=== PATIENT | male | born 1965 | race Caucasian/White ===

== ENCOUNTER 2017-09-27 15:50 | Inpatient (IN) ==
--- NOTE | 2017-09-27 16:17 | Emergency Department Note ---
Disposition Clinical Impression: Hypertensive emergency CVA (cerebral vascular accident) Qualifiers: CVA mechanism: unspecified Qualified Code(s): I63.9 - Cerebral infarction, unspecified Disposition: Admitted As Inpatient Condition: Fair Time of Disposition: 17:43 Neuro HPI - General Chief Complaint: ED General Medical Stated Complaint: hypertensive, R arm / Leg weakness Time Seen by Provider: 09/27/17 16:08 Source: patient Mode of arrival: ambulatory Limitations: no limitations Nursing Notes Reviewed: Yes Vital Signs Reviewed: Yes - History of Present Illness HPI Narrative: 52-year-old who developed a right upper extremity right lower extremity weakness at 2 AM yesterday. States his symptoms are slowly improving. Onset of Symptoms Date: 09/26/17 Onset of Symptoms Time: 02:00 Symptom Onset Unknown: No Timing confirmed by: other Location: right arm, right leg History of same: No Severity: moderate Quality: weakness Symptoms Improving: Yes Improves with: time Worsens with: none Context: sudden onset On Anticoagulants: No Associated symptoms: Reports: denies other symptoms Treatments Prior to Arrival: none - Related Data Home Medications: Home Medications Medication Instructions Recorded Confirmed No Known Home Drugs 09/27/17 09/27/17 Allergies/Adverse Reactions: Allergies Allergy/AdvReac Type Severity Reaction Status Date / Time No Known Allergies Allergy Verified 03/04/16 05:20 Constitutional: Denies: fever, chills, weakness, weight change Eyes: Denies: eye pain, eye discharge, vision change ENT ED: Denies: ear pain, throat pain, dental pain, hearing loss, epistaxis, congestion, dysphagia Cardiovascular: Denies: chest pain, palpitations, dyspnea on exertion, edema, syncope Respiratory: Denies: cough, dyspnea, wheezes, hemoptysis, stridor Gastrointestinal: Denies: abdominal pain, nausea, vomiting, diarrhea, constipation, hematemesis, melena, hematochezia Genitourinary: Denies: urgency, dysuria, frequency, hematuria Musculoskeletal: Denies: back pain, neck pain, arthralgia, myalgia Integumentary: Denies: rash, abrasion, lesions Neurological: Reports: weakness. Denies: headache, numbness, paresthesias, confusion, abnormal gait, vertigo Psychiatric: Denies: anxiety, depression, suicidal thoughts, homicidal thoughts , auditory hallucinations, visual hallucinations Endocrine: Denies: fatigue Hematological/Lymphatic: Denies: easy bleeding, easy bruising Allergic/Immunologic: Denies: facial swelling, urticaria Past Medical History - Past Medical History Medical history: Reports: non-contributory Psychiatric history: Reports: no psych history - Social History Smoking Status: Unknown if ever smoked Smokeless Tobacco Status: No Alcohol use: Reports: none Drug use: Reports: marijuana Physical Exam - General Limitations: no limitations General appearance: alert, in no apparent distress - Head Head exam: atraumatic, normocephalic, normal inspection - Eye Eye exam: Present: normal appearance, PERRL, EOMI - ENT ENT exam: normal exam, normal oropharynx, mucous membranes moist - Neck Neck exam: Present: normal inspection, full ROM, trachea midline - Chest Chest inspection: Present: normal inspection, symmetric chest wall rise - Respiratory Respiratory exam: Present: normal lung sounds bilaterally - Cardiovascular Cardiovascular exam: Present: regular rate, normal rhythm, normal heart sounds - Abdominal Exam Abdominal exam: Present: soft, Non-Tender. Absent: tenderness, distention, guarding, rebound, rigidity - Extremities Exam Extremities exam: Present: normal inspection, full ROM. Absent: tenderness, pedal edema - Expanded Lower Extremity Exam Neurovascular/Tendon exam: Present: motor deficit (Currently a slight decrease in supervisor blasting strength on the right ). Absent: sensory deficit, tendon deficit Gait: observed and normal - Back Exam Back exam: Present: normal inspection, full ROM. Absent: tenderness - Neurological Exam Neurological exam: Present: alert, oriented X3 - Psychiatric Psychiatric exam: Present: normal affect, normal mood - Skin Skin exam: Present: warm, dry, intact, normal color Course - Reevaluation(s) Reevaluation #1: 52-year-old with onset of right arm weakness and right leg weakness that started about 38 hours prior to arrival. Workup here his NIH score is actually 0 now so it is improving. CT scan does show CVA in the subacute to chronic. Time: 18:17 Reevaluation #2: Blood pressure is 170/109 much improved. Patient is asymptomatic. Time: 19:07 - Consultations Consultation #1: Discussed with Dr. Falk who will see the patient in consult, we are going to start nicardipine and get his blood pressure down to 180/100 range. Time: 18:17 Consultation #2: Discussed with parul Pelaez. Time: 18:20 Vital Signs Temperature 98.9 F 09/27/17 16:00 Pulse Rate 66 09/27/17 16:00 Respiratory Rate 18 09/27/17 16:00 Blood Pressure 152/74 09/27/17 16:00 O2 Sat by Pulse Oximetry 99 09/27/17 16:00 Temperature 98.9 F 09/27/17 16:00 Pulse Rate 92 09/27/17 19:05 Respiratory Rate 18 09/27/17 19:05 Blood Pressure 170/109 09/27/17 19:05 O2 Sat by Pulse Oximetry 98 09/27/17 19:05 Oxygen Delivery Oxygen Delivery Room Air Neuro Symptoms/Deficit - Lab Data Lab results reviewed: Yes I reviewed the patient's lab results. Result diagrams: 09/27/17 16:24 09/27/17 16:24 Lab Results 09/27/17 09/27/17 Range/Units 16:24 16:24 WBC 6.4 (4.3-11.1) K/mcL RBC 4.56 (4.19-5.50) M/mcL Hgb 15.0 (12.9-16.9) g/dL Hct 42.6 (37.5-50.1) % MCV 93.4 (83.0-100.0) fL MCH 32.9 (28.0-33.3) pg MCHC 35.2 (31.6-35.5) g/dL RDW 12.5 (11.5-14.5) % Plt Count 283 (140-400) K/mcL MPV 10.7 (9.4-12.4) fL Immature Gran % 0.2 (0-4) % Seg Neutrophils % 75.2 % Lymphocytes % 15.3 % Monocytes % 8.4 % Eosinophils % 0.6 % Basophils % 0.3 % Neutrophils # 4.8 (1.6-8.9) K/mcL Lymphocytes # 1.0 (0.6-4.6) K/mcL Monocytes # 0.5 (0.0-1.3) K/mcL Eosinophils # 0.0 (0.0-0.6) K/mcL Basophils # 0.0 (0.0-0.2) K/mcL Sodium 141 (136-145) mEq/L Potassium 3.5 (3.5-5.1) mEq/L Chloride 106 (98-107) mEq/L Carbon Dioxide 27 (23-29) mEq/L BUN 20 (6-20) mg/dL Creatinine 1.33 H (0.70-1.30) mg/dL Est GFR ( Amer) > 60 (> 60) Est GFR (Non-Af Amer) 56 L (> 60) BUN/Creatinine Ratio 15 (6-26) Glucose 108 H (70-105) mg/dL Calculated Osmolality 295 (280-300) Calcium 9.3 (8.6-10.3) mg/dL Troponin I < 0.03 (< 0.04) ng/mL - Radiology Data Radiology results reviewed: Yes I reviewed the patient's radiology results. Chest X-Ray 09/27/17 16:13 IMPRESSION: No acute process. D/ / Rocael Jarquin MD / Rocael Jarquin MD Interpreting Provider: Rocael Jarquin MD Head CT 09/27/17 16:13 IMPRESSION: Focal hypoattenuation in the left basal ganglia suggesting subacute to chronic infarct. RECOMMENDATIONS: Consider further evaluation with MRI as clinically warranted. D/ / Lilly Chappell MD / Lilly Chappell MD Interpreting Provider: Lilly Chappell MD - EKG Data EKG attestation: Yes I reviewed and interpreted this EKG. EKG shows normal: sinus rhythm Rate: bradycardia Rhythm: NSR [place]ander/QRS: normal Interpretation: no acute changes NIH Stroke Scale - Level of Consciousness LOC: Alert - LOC Questions LOC Questions: Answers both correctly - LOC Commands LOC Commands: Performs both correctly - Best Gaze Best Gaze: Normal - Visual Visual: No visual loss - Facial Palsy Facial Palsy: Normal - Motor Arms Motor Arm-Left: No drift for 10 seconds Motor Arm-Right: No drift for 10 seconds - Motor Legs Motor Leg-Left: No drift for 5 seconds Motor Leg-Right: No drift for 5 seconds - Limb Ataxia Limb Ataxia: Normal, No Ataxia - Sensory Sensory: Normal - Best Language Best Language: No aphasia - Dysarthria Dysarthria: Normal - Extinction and Inattention Extinction and Inattention: Normal - NIHSS Total Score NIHSS Total Score: 0 TPA Checklist - Eligibilty for IV tPA 1. LKW equal to or less than 4.5 hours be before treatment: No - LKW: 3-4.5 hrs Add. Warnings/Precautions Patient/family understanding: The patient/family members have been counseled and understood the risk, benefit , and alternatives of treatment. Critical Care Time Critical Care Time: Yes Total Critical Care Time: 30 Attestation: The high probability of a clinically significant, sudden or life threatening deterioration of the [neurological] system(s) required my full and direct attention, intervention and personal management. The aggregate critical care time was [30] minutes. This time is in addition to time spent performing reported procedures but includes the following: [x] Data Review and interpretation [x] Patient assessment and monitoring of vital signs [x] Documentation [x] Medication orders and management
[2017-09-27 16:39] LABS: Basophils % 0.3 %; Eosinophils % 0.6 %; Hematocrit 42.6 % (37.5-50.1); Immature Granulocytes % 0.2 % (0-4); Lymphocytes % 15.3 %; Mean Corpuscular HGB Conc 35.2 g/dL (31.6-35.5); Mean Corpuscular Hemoglobin 32.9 pg (28.0-33.3); Mean Corpuscular Volume 93.4 fL (83.0-100.0); Mean Platelet Volume 10.7 fL (9.4-12.4); Monocytes # 0.5 K/mcL (0.0-1.3); Monocytes % 8.4 %; Neutrophils # 4.8 K/mcL (1.6-8.9); Platelet Count 283 K/mcL (140-400); Red Blood Count 4.56 M/mcL (4.19-5.50); Red Cell Distribution Width 12.5 % (11.5-14.5); Segmented Neutrophils % 75.2 %
[2017-09-27 16:58] LABS: Troponin I < 0.03 ng/mL (< 0.04)
[2017-09-27 17:02] LABS: BUN/Creatinine Ratio 15 (6-26); Blood Urea Nitrogen 20 mg/dL (6-20); Calcium 9.3 mg/dL (8.6-10.3); Carbon Dioxide 27 mEq/L (23-29); Chloride 106 mEq/L (98-107); Glucose 108 mg/dL (70-105); Osmolality,Calculated 295 (280-300); Potassium 3.5 mEq/L (3.5-5.1); Sodium 141 mEq/L (136-145); eGFR For African Americans > 60 (> 60); eGFR For Non-African Americans 56 (> 60)
[2017-09-27] MEDS ORDERED: niCARdipine 40 MG/200 ML MLS IVC SCH (17:45)
[2017-09-27] MEDS ORDERED: Aspirin 81 MG TAB.CHEW PO ONE (17:48)
--- NOTE | 2017-09-27 20:06 | Internal Med History&Physical ---
<Mauricio Sy - Last Filed: 09/27/17 21:34> Date of Encounter: 09/27/17 Time of Encounter: 20:06 Internal Medicine - H&P: HPI Chief complaint: Right Sided weakness Admitted From: Emergency Dept History of present illness: Mr. Simons is a 52 year old male with no past medical history does not take any medications presented to the emergency department for right-sided weakness that began at 2 AM the previous day. Symptoms began 09/27/17 at 2 AM. Said there is living and better throughout the day where now they are completely resolved. Patient has no family history of strokes. Only family history is hypertension no cardiac disease. He does not take any medications this time. Stays never had these symptoms before. He said the weakness is only on the right side where he felt like he was disoriented had a hard time walking on that right leg and also had difficult movements of the right hand including phone use. This has almost completely resolved for his admission. In the emergency department they did consult neurology who recommended nicardipine drip but not to drop his blood pressure too much. CT of the head showed subacute/chronic ischemia. Patient does not take aspirin or cholesterol. Otherwise patient no complaints including chest pain, shortness of breath, changes in mental status or generalized weakness otherwise there have been no recent fevers or illnesses Past Med Surg Social Fam HX - Past Medical History Medical history: non-contributory Psychiatric history: no psych history - Social History Smoking Status: Unknown if ever smoked Smokeless Tobacco Status: No Alcohol use: none Drug use: marijuana - Family History Mother Hx Family Cardiac Disorders: Yes (HTN) Hx Family Musculoskeletal Disorders: Yes Father Hx Family Cardiac Disorders: Yes (HTN) Hx Family Cancer: Yes (kidney cancer) Internal Medicine - H&P: Meds No Known Home Drugs 09/27/17 [History] 3 Allergy/AdvReac Type Severity Reaction Status Date / Time No Known Allergies Allergy Verified 03/04/16 05:20 All Systems PM: A 10-system review of systems was performed and is negative for pertinent findings except as documented above in the HPI. - Constitutional Constitutional: no chills, no fever(s), no night sweats - EENT Eyes: no change in vision, no discharge, no pain, no photophobia - Cardiovascular Cardiovascular ROS IM: no chest pain, no diaphoresis, no dyspnea, no lightheadedness, no palpitations, no syncope - Respiratory Respiratory: no cough, no dyspnea, no wheezing, no excessive phlegm production - Gastrointestinal Gastrointestinal: no abdominal pain, no diarrhea, no hematemesis, no hematochezia, no melena, no nausea, no vomiting - Musculoskeletal Musculoskeletal ROS IM: no numbness, no tingling - Integumentary Integumentary IM: no rash, no unusual bruising - Neurological Neurological ROS: focal weakness (Right side upper and lower extremity), numbness, no abnormal gait, no abnormal movements, no abnormal speech, no confusion, no convulsions, no dizziness, no frequent falls, no headache(s), no loss of vision, no paresthesias, no tingling, no tremor(s), no weakness - Hematologic/Lymphatic Hematologic/Lymphatic: no easy bruising - Constitutional Vitals: Temp Pulse Resp BP Pulse Ox 98.9 F 92 18 170/109 98 09/27/17 16:00 09/27/17 19:05 09/27/17 19:05 09/27/17 19:05 09/27/17 19:05 General appearance: Present: A&O X 3, no acute distress, answers questions appropriately - Head Head exam: Present: atraumatic, normocephalic - Eye Eye exam: Present: PERRL, conjuntiva pink, sclera anicteric Pupils: Present: PERRL - Neck Neck exam general surgery: Present: supple, trachea midline. Absent: lymphadenopathy - Respiratory Respiratory exam: Present: CTAB. Absent: accessory muscle use, rales, rhonchi, wheezes - Cardiovascular Cardiovascular exam: Present: RRR, +S1, +S2. Absent: diastolic murmur, gallop, rubs, systolic murmur - GI/Abdominal GI/Abdominal exam: Present: normal bowel sounds, soft, no peritoneal signs. Absent: distended, tenderness - Extremities Exam Extremities exam: Present: warm, radial pulses palpable and symmetrical. Absent : calf tenderness, cyanotic, pedal edema - Neurological Exam Neurological exam: Present: alert, CN II-XII intact, normal gait, oriented X3, reflexes normal, no focal deficits, strengths equal and symetr throughout. Absent: motor sensory deficit, pronater drift, facial droop, speech deficit - Skin Skin exam: Present: dry, intact Internal Med - H&P Results - Labs CBC & Chem 7: 09/27/17 16:24 09/27/17 16:24 - Assessment and plan (1) CVA (cerebral vascular accident) Current Visit: Yes Status: Acute Assessment and plan: Patient started having symptoms of right-sided weakness at approximately 2 AM on 09/27/17 patient stated that the symptoms slowly went away for now they feel like they are completely resolved. Patient said he felt like his dexterity was going away in the right hand and he was having trouble walking with the right leg. Otherwise he had no sensation loss. Patient does not take any medications she is otherwise healthy has no CVA family history only family history is hypertension. Patient was hypertensive at 220/140 in the emergency department. In the emergency Department patient was started on a nicardipine drip per neurology's request to help lower the blood pressure. We will try and keep his blood pressure between 220 and 190s systolic being sure not to drop it more than 15% within the first 24 hours to keep from having permissive hypotension and causing ischemia to the brain. CT head done in the emergency department showed possible chronic/subacute infarct but no acute infarct or head bleeds. Patient had an NIH score of 0 in the emergency department. We will start baby aspirin of 81 mg daily as well as 40 mg Lipitor daily. Order echo for the morning We will order MRI/MRA head for the morning. We will get morning labs to continue to monitor. Await recommendations from neurology consult Qualifiers: CVA mechanism: unspecified Qualified Code(s): I63.9 - Cerebral infarction, unspecified (2) Hypertensive emergency Current Visit: Yes Status: Acute Assessment and plan: Patient was hypertensive at 220/140 in the emergency department. Nicardipine drip was started due to keeping from Brandi anymore ischemia to the brain due to causing hypotension we will have a goal blood pressure of not dropping below 15 % within the first 24 hours. We will keep the blood pressure between 220 and 190 systolic. Continue nicardipine drip to keep blood pressure between 220 and 190 systolic. (3) DVT prophylaxis Current Visit: Yes Status: Acute Assessment and plan: Heparin subcutaneous - Time Spent With Patient Total time spent is greater than 50% in coordination of care (as documented) at patient's floor/unit and/or counseling patient: <Andrew Smith - Last Filed: 09/28/17 05:03> Date of Encounter: 09/28/17 Internal Medicine - H&P: HPI History of present illness: Mr. Simons is a 52 year old male All Systems PM: A 10-system review of systems was performed and is negative for pertinent findings except as documented above in the HPI. - Constitutional Vitals: Temp Pulse Resp BP Pulse Ox 98.3 F 54 18 160/91 97 09/28/17 03:59 09/28/17 04:30 09/28/17 03:59 09/28/17 03:59 09/28/17 03:59 Internal Med - H&P Results - Labs CBC & Chem 7: 09/27/17 16:24 09/27/17 16:24 - Attending Attestation I have seen and examined this patient independently. I have discussed with resident physician Dr. Sy regarding the management plan. Agree with the documentation. - Time Spent With Patient Total time spent is greater than 50% in coordination of care (as documented) at patient's floor/unit and/or counseling patient:
[2017-09-27] MEDS ORDERED: Naloxone 0.4 MG/ML INJ IVP PRN (20:18)
[2017-09-27] MEDS ORDERED: Acetaminophen 325 MG TABLET PO PRN (20:18)
[2017-09-27] MEDS: 0.9 % Sodium Chloride 1,000 ML IVC SCH (21:57)
[2017-09-28] MEDS: *HR* Heparin 5,000 UNIT/ML VIAL SQ SCH ×2 (05:42→17:55)
[2017-09-28 06:40] LABS: Prothrombin Time 10.7 Seconds (9.4-12.1)
[2017-09-28 06:48] LABS: Basophils # 0.1 K/mcL (0.0-0.2); Basophils % 1.1 %; Eosinophils # 0.1 K/mcL (0.0-0.6); Eosinophils % 1.7 %; Hematocrit 43.2 % (37.5-50.1); Hemoglobin 14.9 g/dL (12.9-16.9); Immature Granulocytes % 1.3 % (0-4); Lymphocytes % 17.6 %; Mean Corpuscular HGB Conc 34.5 g/dL (31.6-35.5); Mean Corpuscular Hemoglobin 32.5 pg (28.0-33.3); Mean Corpuscular Volume 94.1 fL (83.0-100.0); Mean Platelet Volume 10.5 fL (9.4-12.4); Monocytes # 0.5 K/mcL (0.0-1.3); Monocytes % 8.5 %; Neutrophils # 3.8 K/mcL (1.6-8.9); Nucleated Red Blood Cells 0.9 /100 WBC (0); Platelet Count 252 K/mcL (140-400); Red Blood Count 4.59 M/mcL (4.19-5.50); Red Cell Distribution Width 12.7 % (11.5-14.5); Segmented Neutrophils % 69.8 %
[2017-09-28 06:55] LABS: BUN/Creatinine Ratio 18 (6-26); Blood Urea Nitrogen 19 mg/dL (6-20); Calcium 8.8 mg/dL (8.6-10.3); Carbon Dioxide 25 mEq/L (23-29); Chloride 107 mEq/L (98-107); Chol/HDL Ratio 3.8 (0-4.9); Cholesterol 245 mg/dL (< 200); Glucose 114 mg/dL (70-105); HDL Cholesterol 64 mg/dL (40-59); LDL Cholesterol,Calculated 147 mg/dL (0-99); Osmolality,Calculated 297 (280-300); Potassium 4.1 mEq/L (3.5-5.1); Sodium 142 mEq/L (136-145); Triglycerides 171 mg/dL (< 150); eGFR For African Americans > 60 (> 60); eGFR For Non-African Americans > 60 (> 60)
[2017-09-28 06:56] LABS: Troponin I < 0.03 ng/mL (< 0.04)
[2017-09-28] MEDS: Aspirin 81 MG TAB.CHEW PO SCH (07:46)
--- NOTE | 2017-09-28 07:46 | Neurology - Consult Note ---
Date of Encounter: 09/28/17 Time of Encounter: 07:44 Assessment and Plan (1) Basal ganglia infarction Current Visit: Yes Status: Acute Patient has suffered an acute infarct of the left basal ganglia due to malignant hypertension. His deficits have almost completely resolved. MRI/MRA of the brain are pending today. I believe he will likely make a full recovery. Malignant hypertension likely resulted in a vasospasm causing the infarct. At this juncture I recommend slowly normalizing his blood pressure over the next day or 2. Certainly long-term monitoring and treatment of his hypertension and hyperlipidemia going to be paramount. Long-term therapy will consist of antihypertensives, statin therapy and aspirin 81 mg daily. Would recommend stroke protocol orders for nursing care. He should also have PT and OT evaluations to determine whether or not he will need further therapy after discharge. I will reevaluate him at your request. History of Present Illness HPI: The chart was reviewed, the patient was seen and examined. Mr. Horn is a very pleasant 52-year-old right-handed gentleman who is seen for neurologic evaluation secondary to symptoms of right upper and right lower extremity clumsiness. Patient states that he awakened from his sleep about 2 days or so ago with the symptoms. He denied headache, denied paresthesias, denies visual changes. He had not ever been diagnosed with any other medical conditions and was not on any other medication therapy. Upon arrival to the ED his symptoms were nearly resolved, however his blood pressure upon arrival was 220/140. Other testing completed since his admission finding that his triglycerides and cholesterol are also markedly elevated. He does not smoke cigarettes but does smoke marijuana. Currently he is awake alert and oriented and gives a lucid history. CT scan of the brain completed in the ED revealed what appears to be in acute infarct in the left basal ganglia. MRI/MRA of the brain are pending today. He did get aspirin in the ED. Past Med Surg Social Fam HX - Past Medical History Medical history: non-contributory Psychiatric history: no psych history - Social History Smoking Status: Unknown if ever smoked Smokeless Tobacco Status: No Alcohol use: none Drug use: marijuana - Family History Mother Hx Family Cardiac Disorders: Yes (HTN) Hx Family Musculoskeletal Disorders: Yes Father Hx Family Cardiac Disorders: Yes (HTN) Hx Family Cancer: Yes (kidney cancer) Medications and Allergies No Known Home Drugs 09/27/17 [History] 3 Allergy/AdvReac Type Severity Reaction Status Date / Time No Known Allergies Allergy Verified 03/04/16 05:20 All Systems: The remainder of the systems were reviewed and are negative Review of Systems: The balance of the systems review is negative. Physical Examination - Vital Signs Vital Signs: Initial Vital Signs Temp Pulse Resp BP Pulse Ox 98.9 F 66 18 152/74 99 09/27/17 16:00 09/27/17 16:00 09/27/17 16:00 09/27/17 16:00 09/27/17 16:00 - Neurologic Detailed motor examination: full strength in all major muscle groups Motor examination - right side: 4/5: triceps, 5/5: deltoids, biceps, wrist flexion, wrist extension, supervisor sunglasses, hip flexors, tibialis Anterior, quadriceps, toe extension (EHL), plantarflexion Motor examination - left side: 5/5: deltoids, biceps, triceps, wrist flexion, wrist extension, hip flexors, supervisor sunglasses, quadriceps, tibialis Anterior, toe extension (EHL), plantarflexion Reflex and gait examination: other (Deep tendon reflexes are 2 symmetrically of the biceps, triceps, brachioradialis, patella, and Achilles. No long tract signs are identified.) Mental Status Examination: awake, alert, oriented to person, oriented to place, oriented to time, follows commands appropriately, answers questions appropriately, no agnosia, no aphasia, no aproxia Cranial nerve examination: PERRL, EOMI, visual mendenhall intact, corneal reflexes brisk symmetrically, sensory to face intact, mastication intact, no facial asymmetry is present, no dysarthria, hearing is intact symmetrically, soft palate elevates bilaterally upon phonation, gag reflex intact, flexes SCM and trapezius muscles symmetrically with full power, tongue protrudes midline, no atrophy or facial fasiculations present Cerebellar examination: no dysmetria, performs finger to nose and heel to mo[place] symmetrically without ataxia, no gait ataxia, no truncal ataxia, no difficulty with rapid alternating movements Results - Laboratory Findings CBC and BMP: 09/28/17 06:03 09/28/17 06:03 Abnormal lab findings: Abnormal lab results Nucleated RBCs/100 WBC 0.9 /100 WBC (0) H 09/28/17 06:03 Glucose 114 mg/dL (70-105) H 09/28/17 06:03 Triglycerides 171 mg/dL (< 150) H 09/28/17 06:03 Cholesterol 245 mg/dL (< 200) H 09/28/17 06:03 LDL Cholesterol, Calc 147 mg/dL (0-99) H 09/28/17 06:03 VLDL Cholesterol, Calc 34 mg/dL (< 31) H 09/28/17 06:03 HDL Cholesterol 64 mg/dL (40-59) H 09/28/17 06:03 Consult Discharge Plan - Plan Referrals: NONE,PCP [Primary Care Provider] -
[2017-09-28] MEDS: 0.9 % Sodium Chloride 1,000 ML IVC SCH (07:53)
[2017-09-28] MEDS ORDERED: niCARdipine 40 MG/200 ML MLS IVC SCH ×2 (14:45→16:47)
--- NOTE | 2017-09-28 16:40 | Internal Med Progress Note ---
Date of Encounter: 09/28/17 Time of Encounter: 10:00 - Assessment and plan (1) CVA (cerebral vascular accident) Current Visit: Yes Status: Acute Assessment and plan: Presented with right-sided weakness, now improving. CT head showed subacute to chronic infarct in left basal ganglia. MRI brain shows an acute lacunar infarct in left thalamus/posterior limb of left internal capsule. MRA head and neck showed no focal stenosis or aneurysm. Follow-up echocardiogram and bilateral carotid Doppler. Neurology consult appreciated. Continue blood pressure control, aspirin and statin have been started. Frequent neuro checks. Physical and occupational therapy evaluation. Qualifiers: CVA mechanism: unspecified Qualified Code(s): I63.9 - Cerebral infarction, unspecified (2) Hypertensive emergency Current Visit: Yes Status: Acute Assessment and plan: Uncontrolled hypertension with acute stroke. Has been started on the Cardizem drip which was then held. Systolic blood pressure noted to be greater than 200. Will resume Cardene drip and start Lisinopril-HCTZ to keep BP <180/110. Monitor closely; - Time Spent With Patient Total time spent is greater than 50% in coordination of care (as documented) at patient's floor/unit and/or counseling patient: - Subjective Interval history: Reports some loss of dexterity in the right hand. No other focal weakness, tingling or numbness. Improved right leg weakness. No headache, blurred vision or confusion. - Constitutional Vitals: Temp Pulse Resp BP Pulse Ox 98.6 F 79 19 169/109 96 09/28/17 16:23 09/28/17 16:23 09/28/17 16:23 09/28/17 16:23 09/28/17 16:23 General appearance: Present: A&O X 3, no acute distress, answers questions appropriately - Respiratory Respiratory exam: Present: CTAB. Absent: accessory muscle use, rales, rhonchi, wheezes - Cardiovascular Cardiovascular exam: Present: RRR, +S1, +S2. Absent: diastolic murmur, gallop, rubs, systolic murmur - GI/Abdominal GI/Abdominal exam: Present: normal bowel sounds, soft, no peritoneal signs. Absent: distended, tenderness - Extremities Exam Extremities exam: Present: full ROM, warm, radial pulses palpable and symmetrical. Absent: calf tenderness, cyanotic, pedal edema - Neurological Exam Neurological exam: Present: CN II-XII intact, oriented X3, no focal deficits. Absent: pronater drift, facial droop, speech deficit Internal Medicine: Result - Labs CBC & Chem 7: 09/28/17 06:03 09/28/17 06:03 Labs: Short CBC 09/28/17 Range/Units 06:03 WBC 5.4 (4.3-11.1) K/mcL Hgb 14.9 (12.9-16.9) g/dL Hct 43.2 (37.5-50.1) % Plt Count 252 (140-400) K/mcL Neutrophils # 3.8 (1.6-8.9) K/mcL BMP 09/28/17 06:03 Sodium 142 Potassium 4.1 Chloride 107 Carbon Dioxide 25 BUN 19 Creatinine 1.07 Glucose 114 H Calcium 8.8 Cardiac Enzymes 09/28/17 Range/Units 06:03 Troponin I < 0.03 (< 0.04) ng/mL - ABG Interpretation ABG results: PT/INR, D-dimer PT 10.7 Seconds (9.4-12.1) 09/28/17 06:03 - Impressions Impressions Brain MRI 09/28/17 21:36 IMPRESSION: 1. An acute lacunar infarct is seen in the region of the left thalamus/posterior limb of the left internal capsule. No mass effect or midline shift. 2. Otherwise, no acute intracranial abnormality. 3. Minimal chronic microvascular ischemic change. These results were sent to the [facility] ([facility] on 09/28/2017 at 2:34 pm to be communicated to the referring/covering health care provider/office. D/ / Dwayne Beatty MD / Dwayne Beatty MD Interpreting Provider: Dwayne Beatty MD Head MRA 09/28/17 21:36 IMPRESSION: Unremarkable MRA of the head. D/ / Dwayne Beatty MD / Dwayne Beatty MD Interpreting Provider: Dwayne Beatty MD Consult Discharge Plan - Plan Referrals: Viviane Hough, MORGAN [Advanced Practice Nurse] - (This is at the [facility].)
[2017-09-29 05:05] LABS: Basophils % 0.5 %; Eosinophils # 0.1 K/mcL (0.0-0.6); Hematocrit 42.8 % (37.5-50.1); Hemoglobin 15.4 g/dL (12.9-16.9); Immature Granulocytes % 0.3 % (0-4); Mean Corpuscular Hemoglobin 33.6 pg (28.0-33.3); Mean Corpuscular Volume 93.2 fL (83.0-100.0); Mean Platelet Volume 10.4 fL (9.4-12.4); Monocytes # 0.5 K/mcL (0.0-1.3); Monocytes % 8.7 %; Neutrophils # 4.3 K/mcL (1.6-8.9); Platelet Count 238 K/mcL (140-400); Red Blood Count 4.59 M/mcL (4.19-5.50); Red Cell Distribution Width 12.5 % (11.5-14.5); Segmented Neutrophils % 71.5 %
[2017-09-29 05:23] LABS: BUN/Creatinine Ratio 19 (6-26); Blood Urea Nitrogen 22 mg/dL (6-20); Carbon Dioxide 25 mEq/L (23-29); Chloride 105 mEq/L (98-107); Glucose 120 mg/dL (70-105); Osmolality,Calculated 293 (280-300); Potassium 3.7 mEq/L (3.5-5.1); Sodium 139 mEq/L (136-145); eGFR For African Americans > 60 (> 60); eGFR For Non-African Americans > 60 (> 60)
[2017-09-29] MEDS: *HR* Heparin 5,000 UNIT/ML VIAL SQ SCH ×2 (06:29→16:56)
[2017-09-29] MEDS: Aspirin 81 MG TAB.CHEW PO SCH (08:10)
--- NOTE | 2017-09-29 17:13 | Vascular/Endovasc Consult Note ---
Date of Encounter: 09/29/17 Time of Encounter: 16:40 Assessment and Plan (1) Carotid stenosis, right Status: Chronic The pathophysiology and natural history of carotid stenosis was discussed the patient on questions were answered. The patient has recently sustained a left hemispheric cerebrovascular accident. He has no residual deficits. He has no significant left internal carotid artery stenosis. He is a 60-79% right internal carotid stenosis by duplex. He was instructed to seek immediate medical attention for any signs or symptoms of cerebrovascular accident, transient ischemic attack or amaurosis fugax. The patient is was advised to take aspirin daily. His symptoms he was counseled regarding atherosclerotic risk factor reduction. He reports that he recently quit smoking has been counseled regarding smoking cessation. He will follow-up in vascular clinic in 1 year with a repeat carotid duplex. (2) Hypertensive emergency Status: Acute The patient was counseled regarding atherosclerotic risk factor reduction. (3) CVA (cerebral vascular accident) Status: Acute Qualifiers: CVA mechanism: other Qualified Code(s): I63.8 - Other cerebral infarction - History of Present Illness Consult date: 09/29/17 Requesting physician: Nicole Shell Consult reason: Carotid stenosis Chief complaint: CVA History of present illness: Mr. Simons is a 52 year old male admitted to [facility] with a right-sided weakness. He underwent a MRI of the brain was found have a left hemispheric cerebrovascular accident the patient symptoms have nearly resolved. His symptoms and felt to be due to hypertensive crisis. During his evaluation he underwent a carotid duplex. He was found have significant stenosis. Vascular surgery was counseled for further evaluation. He denies any recurrent symptoms of cerebral vascular accident, transient ischemic attack or amaurosis fugax. He denies chest pain or shortness of breath. Past Med Surg Social Fam HX - Past Medical History Medical history: non-contributory Psychiatric history: no psych history - Social History Smoking Status: Unknown if ever smoked Smokeless Tobacco Status: No Alcohol use: none Drug use: marijuana - Family History Mother Hx Family Cardiac Disorders: Yes (HTN) Hx Family Musculoskeletal Disorders: Yes Father Hx Family Cardiac Disorders: Yes (HTN) Hx Family Cancer: Yes (kidney cancer) Medications and Allergies Aspirin 81 mg PO DAILY #30 tab.chew 09/30/17 [Rx] Atorvastatin [Lipitor] 40 mg PO HS #30 tablet 09/30/17 [Rx] Lisinopril-HCTZ 20-12.5 [Prinzide 20-12.5] 1 each PO DAILY #30 tablet 09/30/17 [ Rx] Metoprolol [Lopressor] 12.5 mg PO BID #30 tablet 09/30/17 [Rx] 3 Allergy/AdvReac Type Severity Reaction Status Date / Time No Known Allergies Allergy Verified 03/04/16 05:20 All Systems Review: The remainder of the systems were reviewed and are negative - Constitutional Constitutional: no headache(s), no lethargy - EENT Eyes: no blurred vision, no loss of vision - Cardiovascular Cardiovascular: no chest pain at rest, no dyspnea at rest Exam Vital Signs, Last 4 Hours Temp Pulse Resp BP Pulse Ox 09/29/17 17:10 181/114 09/29/17 15:45 98.5 F 80 18 184/104 98 HEENT: Present: Trachea midline, Pupils equal Neck: Present: Right Carotid bruit. Absent: Left Carotid bruit Cardiac: Present: Reg Rate and Rhythm, Normal S1 and S2 Lungs: Present: Normal Breath Sounds, No Wheeze, Rales, Rhonchi Neuro: Present: Alert and responsive, Cranial nerves grossly intact, Motor nerves grossly intact, Sensory nerves grossly intact Abdomen: Present: Non-tender. Absent: Masses Vascular: Present: Normal capillary refill, Pulse, normal. Absent: Cyanosis Skin: Present: No rashes noted on visualized skin Consult Discharge Plan - Plan Instructions: Metoprolol (By mouth), Aspirin (By mouth), Atorvastatin (By mouth ), Lisinopril/Hydrochlorothiazide (By mouth), Chronic Hypertension (DC) Additional Instructions: F/up with PCP in 1-2 weeks Referrals: Rowena Chandler MD [Partnered Physician] - 11/24/17 8:00 am (this is a new patient visit) Prescriptions: Aspirin 81 mg PO DAILY #30 tab.chew Atorvastatin [Lipitor] 40 mg PO HS #30 tablet Lisinopril-HCTZ 20-12.5 [Prinzide 20-12.5] 1 each PO DAILY #30 tablet Metoprolol [Lopressor] 12.5 mg PO BID #30 tablet
--- NOTE | 2017-09-29 19:22 | Internal Med Progress Note ---
Date of Encounter: 09/29/17 Time of Encounter: 10:30 - Assessment and plan (1) CVA (cerebral vascular accident) Current Visit: Yes Status: Acute Assessment and plan: Presented with right-sided weakness, now improving. CT head showed subacute to chronic infarct in left basal ganglia. MRI brain shows an acute lacunar infarct in left thalamus/posterior limb of left internal capsule. MRA head and neck showed no focal stenosis or aneurysm. Carotid Doppler shows right ICA 60-79 % stenosis; consulted vascular surgery; Follow-up echocardiogram; Neurology consult appreciated. Continue blood pressure control, aspirin and statin have been started. Frequent neuro checks. Physical and occupational therapy evaluation noted, no interventions necessary. Qualifiers: CVA mechanism: unspecified Qualified Code(s): I63.9 - Cerebral infarction, unspecified (2) Hypertensive emergency Current Visit: Yes Status: Acute Assessment and plan: Uncontrolled hypertension with acute stroke. Has been started on Cardene drip initially. BP noted to be improving; continue Lisinopril-HCTZ to keep BP <180/ 110. will use PRN IV Hydralazine; Monitor closely; - Time Spent With Patient Total time spent is greater than 50% in coordination of care (as documented) at patient's floor/unit and/or counseling patient: - Subjective Interval history: Reports improvement in right hand weakness; no headache, focal weakness, dyspnea , headache, chest pain; BP is improving; - Constitutional Vitals: Temp Pulse Resp BP Pulse Ox 98.5 F 80 18 181/114 98 09/29/17 15:45 09/29/17 15:45 09/29/17 15:45 09/29/17 17:10 09/29/17 15:45 General appearance: Present: A&O X 3, no acute distress, answers questions appropriately - Respiratory Respiratory exam: Present: CTAB. Absent: accessory muscle use, rales, rhonchi, wheezes - Cardiovascular Cardiovascular exam: Present: RRR, +S1, +S2. Absent: diastolic murmur, gallop, rubs, systolic murmur Internal Medicine: Result - Labs CBC & Chem 7: 09/29/17 04:34 09/29/17 04:34 Labs: Short CBC 09/29/17 Range/Units 04:34 WBC 6.1 (4.3-11.1) K/mcL Hgb 15.4 (12.9-16.9) g/dL Hct 42.8 (37.5-50.1) % Plt Count 238 (140-400) K/mcL Neutrophils # 4.3 (1.6-8.9) K/mcL BMP 09/29/17 04:34 Sodium 139 Potassium 3.7 Chloride 105 Carbon Dioxide 25 BUN 22 H Creatinine 1.15 Glucose 120 H Calcium 9.0 - ABG Interpretation ABG results: PT/INR, D-dimer PT 10.7 Seconds (9.4-12.1) 09/28/17 06:03 - Impressions Impressions Echocardiogram 09/28/17 05:01 Impressions: LVEF 60-65%. Mild left ventricular diastolic dysfunction. Normal right ventricular structure and function. No significant valvular dysfunction. No pulmonary hypertension. No evidence of PFO with agitated saline contrast. Left Ventricular Wall Motion: Rest Echo Findings All wall segments showed normal motion. Findings: Study Quality * Technically adequate exam. ECG Findings * Normal sinus rhythm. Left Ventricle * LVEF 60-65%. * Normal LV chamber size, wall thickness and function. * Mild left ventricular diastolic dysfunction. Right Ventricle * Normal right ventricular structure and function. Left Atrium * Normal left atrial size. Right Atrium * Normal right atrial size. Mitral Valve * Normal mitral valve structure. * No mitral stenosis. * No mitral regurgitation. Aortic Valve * No aortic regurgitation. * Aortic valve not well visualized. * No aortic stenosis. Tricuspid Valve * No tricuspid regurgitation. * Normal tricuspid valve structure. * Estimated RA pressure is 3 mmHg. * Estimated RVSP is 17 mmHg. * No pulmonary hypertension. Pulmonic Valve * Pulmonic valve is not well visualized. * No pulmonic stenosis. * No pulmonic regurgitation. Pulmonary Artery * Pulmonary artery not well visualized. Aorta * Not well visualized. Pericardium * There is no pericardial effusion present. IVC * The IVC is not dilated. Interatrial Septum * No evidence of PFO with agitated saline contrast. Consult Discharge Plan - Plan Referrals: Viviane Hough, SONAR WATCHSTANDER [Advanced Practice Nurse] - (This is at the [facility].)
[2017-09-30 06:44] VITALS: BP 181/104
[2017-09-30] MEDS: *HR* Heparin 5,000 UNIT/ML VIAL SQ SCH (06:44)
[2017-09-30 06:54] LABS: Basophils % 0.4 %; Eosinophils # 0.1 K/mcL (0.0-0.6); Eosinophils % 0.8 %; Hematocrit 46.3 % (37.5-50.1); Hemoglobin 16.2 g/dL (12.9-16.9); Immature Granulocytes % 0.6 % (0-4); Mean Corpuscular Volume 94.3 fL (83.0-100.0); Mean Platelet Volume 10.6 fL (9.4-12.4); Monocytes # 0.7 K/mcL (0.0-1.3); Monocytes % 9.7 %; Neutrophils # 5.3 K/mcL (1.6-8.9); Platelet Count 277 K/mcL (140-400); Red Blood Count 4.91 M/mcL (4.19-5.50); Red Cell Distribution Width 12.6 % (11.5-14.5); Segmented Neutrophils % 74.5 %
[2017-09-30 07:14] LABS: BUN/Creatinine Ratio 21 (6-26); Blood Urea Nitrogen 27 mg/dL (6-20); Calcium 9.5 mg/dL (8.6-10.3); Carbon Dioxide 28 mEq/L (23-29); Chloride 103 mEq/L (98-107); Glucose 120 mg/dL (70-105); Osmolality,Calculated 292 (280-300); Potassium 3.8 mEq/L (3.5-5.1); Sodium 138 mEq/L (136-145); eGFR For African Americans > 60 (> 60); eGFR For Non-African Americans 59 (> 60)
[2017-09-30] MEDS: Aspirin 81 MG TAB.CHEW PO SCH (08:15)
[2017-09-30] MEDS ORDERED: Lisinopril-HCTZ 20-12.5mg TABLET PO SCH (09:30)
--- NOTE | 2017-09-30 10:32 | Discharge Summary ---
- NOTES TO OUTPATIENT PROVIDER Notes to Outpatient Provider: Acute ischemic stroke, uncontrolled HTN Date of Encounter: 09/30/17 Time of Encounter: 10:30 - Discharge Diagnosis (1) CVA (cerebral vascular accident) Priority: Primary Status: Acute Qualifiers: CVA mechanism: other Qualified Code(s): I63.8 - Other cerebral infarction (2) Hypertensive emergency Priority: Primary Status: Acute Hospital course: Mr. Simons is a 52 year old male with no known medical history, was admitted with right hand weakness. CT head showed subacute to chronic infarct in left BG. He was noted to have uncontrolled HTN, started on Nicardipine drip and maintained per Stroke guidelines-<220/120 in nata 24hours, and <180/110 later. He was started on ASA and statin. Neurology was consulted, recommended stroke workup and BP control prior to discharge. MRI brain shows an acute lacunar infarct in left thalamus/posterior limb of left internal capsule. MRA head and neck showed no focal stenosis or aneurysm. Carotid Doppler shows right ICA 60-79% stenosis; consulted vascular surgery- recommend 1 year followup for repeat U/S; PT/OT evaluation- no needs. Oral antihypertensives were added and BP was gradually better controlled. He was advised about weight loss, moderate exercise, low salt diet and medication compliance and close f/up with PCP. He is medically stable for discharge. Discharge discussed with: patient - Time Spent with Patient Total time spent providing and/or coordinating discharge services: Greater than 30 minutes (45 min) - Discharge Medications Prescriptions: Aspirin 81 mg PO DAILY #30 tab.chew Atorvastatin [Lipitor] 40 mg PO HS #30 tablet Lisinopril-HCTZ 20-12.5 [Prinzide 20-12.5] 1 each PO DAILY #30 tablet Metoprolol [Lopressor] 12.5 mg PO BID #30 tablet Home Medications: Aspirin 81 mg PO DAILY #30 tab.chew 09/30/17 [Rx] Atorvastatin [Lipitor] 40 mg PO HS #30 tablet 09/30/17 [Rx] Lisinopril-HCTZ 20-12.5 [Prinzide 20-12.5] 1 each PO DAILY #30 tablet 09/30/17 [ Rx] Metoprolol [Lopressor] 12.5 mg PO BID #30 tablet 09/30/17 [Rx] Allergies/Adverse Reactions: 3 Allergy/AdvReac Type Severity Reaction Status Date / Time No Known Allergies Allergy Verified 03/04/16 05:20 Date of admission: 09/28/17 05:00 Primary care physician: PCP NONE Consults: 09/29/17 10:55 Consult to Vascular Surgery [CONS] Routine Consulting Provider: Vascular Surgery Jolene Reason for Consult: Right ICA 60-79% stenosis, left lacunar infarct Call Completed: Yes Discharging clinician: Nicole Shell Anticipated date of discharge: 09/30/17 - Constitutional Vitals: Temp Pulse Resp BP Pulse Ox 98.9 F 98 16 181/104 98 09/30/17 08:00 09/30/17 08:00 09/30/17 08:00 09/30/17 08:00 09/30/17 08:00 General appearance: Present: A&O X 3, answers questions appropriately - Cardiovascular Cardiovascular exam: Present: RRR, +S1, +S2. Absent: diastolic murmur, gallop, rubs, systolic murmur - Patient Status Disposition: Home, Self-Care Condition: Good Functional capacity at discharge: independent ambulation Overall status at discharge: patient is progressing back to baseline - Discharge Instructions Instructions: Metoprolol (By mouth), Aspirin (By mouth), Atorvastatin (By mouth ), Lisinopril/Hydrochlorothiazide (By mouth), Chronic Hypertension (DC) Follow Up With: Rowena Chandler MD [Partnered Physician] - 11/24/17 8:00 am (this is a new patient visit) Additional Instructions: F/up with PCP in 1-2 weeks - Diet and Activity Activity: resume usual activities as tolerated Diet: low fat, low cholesterol, low salt diet
[2017-10-01] MEDS ORDERED: Lisinopril-HCTZ 20-12.5mg TABLET PO SCH (09:00)
== END 2017-09-30 12:55 | disposition home or self-care (01) | DRG 65 ==
LOC: 2NNU 15:50 → EMEROO 15:50 → 2NNU 19:00 → SUATTDRO 09-28 05:00
PROVIDERS: ADMIT Internal Medicine; ATTEND Internal Medicine

== ENCOUNTER 2017-10-02 07:10 | Observation (INO) ==
[2017-10-02] MEDS ORDERED: 0.9 % Sodium Chloride 1,000 ML IVC ONE (07:13)
[2017-10-02] MEDS ORDERED: methylPREDNISolone 125 MG/2 ML VIAL IVP ONE (07:13)
[2017-10-02] MEDS ORDERED: Famotidine 20 MG/2 ML VIAL IVP ONE (07:13)
--- NOTE | 2017-10-02 07:33 | Emergency Department Note ---
Disposition Clinical Impression: Acute electrocardiogram changes Angioedema Qualifiers: Encounter type: initial encounter Qualified Code(s): T78.3XXA - Angioneurotic edema, initial encounter Disposition: Admitted As Inpatient Condition: Fair Referrals: NONE,PCP [Primary Care Provider] - Forms: ED Satisfaction Letter Allergic Reaction HPI - General Chief complaint: ED Allergic Reaction Stated complaint: Facial Swelling Time Seen by Provider: 10/02/17 07:13 Source: patient Mode of arrival: private vehicle Limitations: no limitations Nursing Notes Reviewed: Yes Vital Signs Reviewed: Yes - History of Present Illness Pt Subjective Complaint: allergic reaction, facial swelling Onset (ago): Just [employer] (Woke up like this) Exposure: medication (4 new meds started last week) Symptoms: Reports: other (Lip swelling) Severity: mild, moderate Treatment prior to arrival: none Previous Allergic Reaction History: none - Related Data Previous Rx's Medication Instructions Recorded Aspirin 81 mg PO DAILY #30 tab.chew 09/30/17 Atorvastatin [Lipitor] 40 mg PO HS #30 tablet 09/30/17 Lisinopril-HCTZ 20-12.5 [Prinzide 1 each PO DAILY #30 tablet 09/30/17 20-12.5] Metoprolol [Lopressor] 12.5 mg PO BID #30 tablet 09/30/17 Allergies Allergy/AdvReac Type Severity Reaction Status Date / Time No Known Allergies Allergy Verified 10/02/17 07:13 All systems ED: reviewed and negative except as stated. Review of Systems: As Per HPI Constitutional: Denies: fever, chills, weakness Eyes: Denies: eye discharge ENT ED: Denies: ear pain, throat pain, congestion, dysphagia Cardiovascular: Denies: chest pain, palpitations, dyspnea on exertion, orthopnea , syncope Respiratory: Denies: cough, dyspnea, wheezes, stridor Gastrointestinal: Denies: abdominal pain, nausea, vomiting Integumentary: Denies: rash, pruritus Neurological: Denies: headache, weakness, numbness, paresthesias, confusion, abnormal gait, vertigo Hematological/Lymphatic: Denies: easy bleeding, easy bruising, lymphadenopathy Allergic/Immunologic: Reports: facial swelling. Denies: urticaria, itchy eyes Past Medical History - Past Medical History Attestation: Yes The following information was validated with the patient. Source: patient Medical history: Reports: hyperlipidemia, hypertension, TIA Psychiatric history: Reports: no psych history - Social History Smoking Status: Never smoker Smokeless Tobacco Status: No Alcohol use: Reports: heavy Drug use: Reports: marijuana Physical Exam - General Limitations: no limitations General appearance: in no apparent distress - Head Head exam: atraumatic, normocephalic, normal inspection - Eye Eye exam: Present: normal appearance, PERRL. Absent: scleral icterus, conjunctival injection, periorbital swelling - ENT ENT exam: mucous membranes moist - Expanded ENT Exam External ear exam: Present: normal external inspection. Absent: mastoid tenderness, periauricular adenopathy Nose exam: negative: rhinorrhea, sinus tenderness Nasal speculum exam: Bilateral: normal Mouth exam: Present: lip swelling (upper and lower - left side only), tongue normal. Absent: drooling, trismus, tongue elevation, tounge swelling Teeth exam: Present: normal inspection. Absent: dental tenderness #, gingival swelling Throat exam: Present: normal inspection. Absent: tonsillar erythema, tonsillomegaly, tonsillar exudate, R peritonsillar mass, L peritonsillar mass, muffled voice - Neck Neck exam: Present: normal inspection, full ROM, trachea midline. Absent: tenderness, meningismus, lymphadenopathy - Chest Chest inspection: Present: normal inspection - Respiratory Respiratory exam: Present: normal lung sounds bilaterally. Absent: respiratory distress - Cardiovascular Cardiovascular exam: Present: regular rate, normal rhythm, normal heart sounds - Extremities Exam Extremities exam: Present: normal inspection, normal capillary refill - Neurological Exam Neurological exam: Present: alert, oriented X3, CN II-XII intact, normal gait - Psychiatric Psychiatric exam: Present: normal affect, normal mood - Skin Skin exam: Present: warm, dry, intact, normal color Course Course Narrative: Patient presents from home for evaluation of lip edema since waking this AM. He was recently started on Lisinopril and three other medications s/p TIA for which he was admitted and cared for here last week. He denies trouble breathing or swallowing. Vitals normal except HTN. No pharyngeal or tongue edema. Noteable left sided upper and lower lip edema. No stridor or other adventitious breath sounds. IV access, labs and meds ordered. Patient will most likely require admission. Patient's EKG shows new Twave inversions / biphasic T waves in multiple leads - Lateral and Inferior. Patient denies chest pain, dyspnea, peripheral edema, syncope. No hypoxia. - Reevaluation(s) Reevaluation #1: Meds and labs ordered. Case discussed with Dr. Martel. Patient will require admission. Time: 07:31 Reevaluation #2: Edema is now present in middle of upper and lower lips. Patient still denies dyspnea, trouble swallowing, voice changes or pain anywhere. Discussed EKG changes. patient denies hx of CAD, family hx of ACS / cad. He has never smoked and has never had a stress test. Time: 08:17 - Consultations Consultation #1: Hospitalist paged Time: 08:19 Vital Signs Temperature 98.3 F 10/02/17 07:11 Pulse Rate 60 10/02/17 07:11 Respiratory Rate 18 10/02/17 07:11 Blood Pressure 178/99 10/02/17 07:11 O2 Sat by Pulse Oximetry 99 10/02/17 07:11 Temperature 98.3 F 10/02/17 07:23 Pulse Rate 58 10/02/17 07:44 Respiratory Rate 18 10/02/17 07:44 Blood Pressure 170/98 10/02/17 07:44 O2 Sat by Pulse Oximetry 99 10/02/17 07:44 Oxygen Delivery Oxygen Delivery Room Air Allergic Reaction - Medical Records Medical records reviewed: Yes I reviewed the patient's medical records. - Lab Data Lab results reviewed: Yes I reviewed the patient's lab results. Lab results narrative: Laboratory Last Values WBC 6.1 K/mcL (4.3-11.1) 10/02/17 07:25 RBC 4.85 M/mcL (4.19-5.50) 10/02/17 07:25 Hgb 15.5 g/dL (12.9-16.9) 10/02/17 07:25 Hct 45.2 % (37.5-50.1) 10/02/17 07:25 MCV 93.2 fL (83.0-100.0) 10/02/17 07:25 MCH 32.0 pg (28.0-33.3) 10/02/17 07:25 MCHC 34.3 g/dL (31.6-35.5) 10/02/17 07:25 RDW 12.8 % (11.5-14.5) 10/02/17 07:25 Plt Count 285 K/mcL (140-400) 10/02/17 07:25 MPV 10.8 fL (9.4-12.4) 10/02/17 07:25 Immature Gran % 0.2 % (0-4) 10/02/17 07:25 Seg Neutrophils % 71.5 % 10/02/17 07:25 Lymphocytes % 15.5 % 10/02/17 07:25 Monocytes % 10.6 % 10/02/17 07:25 Eosinophils % 1.5 % 10/02/17 07:25 Basophils % 0.7 % 10/02/17 07:25 Neutrophils # 4.4 K/mcL (1.6-8.9) 10/02/17 07:25 Lymphocytes # 1.0 K/mcL (0.6-4.6) 10/02/17 07:25 Monocytes # 0.7 K/mcL (0.0-1.3) 10/02/17 07:25 Eosinophils # 0.1 K/mcL (0.0-0.6) 10/02/17 07:25 Basophils # 0.0 K/mcL (0.0-0.2) 10/02/17 07:25 Sodium 141 mEq/L (136-145) 10/02/17 07:25 Potassium 4.0 mEq/L (3.5-5.1) 10/02/17 07:25 Chloride 105 mEq/L (98-107) 10/02/17 07:25 Carbon Dioxide 27 mEq/L (23-29) 10/02/17 07:25 BUN 37 mg/dL (6-20) H 10/02/17 07:25 Creatinine 1.36 mg/dL (0.70-1.30) H 10/02/17 07:25 Est GFR ( Amer) > 60 (> 60) 10/02/17 07:25 Est GFR (Non-Af Amer) 55 (> 60) L 10/02/17 07:25 BUN/Creatinine Ratio 27 (6-26) H 10/02/17 07:25 Glucose 105 mg/dL (70-105) 10/02/17 07:25 Calculated Osmolality 301 (280-300) H 10/02/17 07:25 Calcium 9.9 mg/dL (8.6-10.3) 10/02/17 07:25 Troponin I < 0.03 ng/mL (< 0.04) 10/02/17 07:25 Result diagrams: 10/02/17 07:25 10/02/17 07:25 Lab Results 10/02/17 10/02/17 Range/Units 07:25 07:25 WBC 6.1 (4.3-11.1) K/mcL RBC 4.85 (4.19-5.50) M/mcL Hgb 15.5 (12.9-16.9) g/dL Hct 45.2 (37.5-50.1) % MCV 93.2 (83.0-100.0) fL MCH 32.0 (28.0-33.3) pg MCHC 34.3 (31.6-35.5) g/dL RDW 12.8 (11.5-14.5) % Plt Count 285 (140-400) K/mcL MPV 10.8 (9.4-12.4) fL Immature Gran % 0.2 (0-4) % Seg Neutrophils % 71.5 % Lymphocytes % 15.5 % Monocytes % 10.6 % Eosinophils % 1.5 % Basophils % 0.7 % Neutrophils # 4.4 (1.6-8.9) K/mcL Lymphocytes # 1.0 (0.6-4.6) K/mcL Monocytes # 0.7 (0.0-1.3) K/mcL Eosinophils # 0.1 (0.0-0.6) K/mcL Basophils # 0.0 (0.0-0.2) K/mcL Sodium 141 (136-145) mEq/L Potassium 4.0 (3.5-5.1) mEq/L Chloride 105 (98-107) mEq/L Carbon Dioxide 27 (23-29) mEq/L BUN 37 H (6-20) mg/dL Creatinine 1.36 H (0.70-1.30) mg/dL Est GFR ( Amer) > 60 (> 60) Est GFR (Non-Af Amer) 55 L (> 60) BUN/Creatinine Ratio 27 H (6-26) Glucose 105 (70-105) mg/dL Calculated Osmolality 301 H (280-300) Calcium 9.9 (8.6-10.3) mg/dL Troponin I < 0.03 (< 0.04) ng/mL - Radiology Data Radiology results reviewed: Yes I reviewed the patient's radiology results. Chest X-Ray 10/02/17 07:46 IMPRESSION: No acute process. D/ / Nigel Lawrence MD / Nigel Lawrence MD Interpreting Provider: Nigel Lawrence MD - EKG Data EKG attestation: Yes I reviewed and interpreted this EKG. EKG shows normal: sinus rhythm Rate: normal Rhythm: NSR T wave inversions noted in: I, II, III, aVL, aVF, v5, v6 When compared to previous EKG there are: changes noted Interpretation: nonspecific ST-T wave changes
--- NOTE | 2017-10-02 07:49 | Emergency Department Note ---
Disposition Clinical Impression: Angioedema, Acute electrocardiogram changes Disposition: Admitted As Inpatient Condition: Fair General Adult HPI - General Chief complaint: ED Allergic Reaction Stated complaint: Facial Swelling Time Seen by Provider: 10/02/17 07:13 Source: patient Mode of arrival: private vehicle Limitations: no limitations - History of Present Illness Pain Scale: 0 - Related Data Home Medications Medication Instructions Recorded Confirmed Lisinopril-HCTZ 20-12.5 [Prinzide 1 tab PO DAILY 10/02/17 10/02/17 20-12.5] Previous Rx's Medication Instructions Recorded Aspirin 81 mg PO DAILY #30 tab.chew 09/30/17 Atorvastatin [Lipitor] 40 mg PO HS #30 tablet 09/30/17 Metoprolol [Lopressor] 12.5 mg PO BID #30 tablet 09/30/17 Allergies Allergy/AdvReac Type Severity Reaction Status Date / Time No Known Allergies Allergy Verified 10/02/17 09:05 Constitutional: Denies: fever, chills, weakness Eyes: Denies: eye discharge ENT ED: Denies: ear pain, throat pain, congestion, dysphagia Cardiovascular: Denies: chest pain, palpitations, dyspnea on exertion, orthopnea , syncope Respiratory: Denies: cough, dyspnea, wheezes, stridor Gastrointestinal: Denies: abdominal pain, nausea, vomiting Integumentary: Denies: rash, pruritus Neurological: Denies: headache, weakness, numbness, paresthesias, confusion, abnormal gait, vertigo Hematological/Lymphatic: Denies: easy bleeding, easy bruising, lymphadenopathy Allergic/Immunologic: Reports: facial swelling. Denies: urticaria, itchy eyes Past Medical History - Past Medical History Medical history: Reports: hyperlipidemia, hypertension, TIA Psychiatric history: Reports: no psych history - Social History Smoking Status: Never smoker Smokeless Tobacco Status: No Alcohol use: Reports: heavy Drug use: Reports: marijuana Physical Exam - General Limitations: no limitations General appearance: in no apparent distress Course Vital Signs Temperature 98.3 F 10/02/17 07:11 Pulse Rate 60 10/02/17 07:11 Respiratory Rate 18 10/02/17 07:11 Blood Pressure 178/99 10/02/17 07:11 O2 Sat by Pulse Oximetry 99 10/02/17 07:11 Temperature 98.3 F 10/02/17 07:23 Pulse Rate 84 10/02/17 12:53 Respiratory Rate 18 10/02/17 12:53 Blood Pressure 153/92 10/02/17 12:53 O2 Sat by Pulse Oximetry 96 10/02/17 12:53 Oxygen Delivery Oxygen Delivery Room Air Medical Decision Making - Lab Data Result diagrams: 10/02/17 07:25 10/02/17 07:25 Lab Results 10/02/17 10/02/17 10/02/17 Range/Units 07:25 07:25 09:51 WBC 6.1 (4.3-11.1) K/mcL RBC 4.85 (4.19-5.50) M/mcL Hgb 15.5 (12.9-16.9) g/dL Hct 45.2 (37.5-50.1) % MCV 93.2 (83.0-100.0) fL MCH 32.0 (28.0-33.3) pg MCHC 34.3 (31.6-35.5) g/dL RDW 12.8 (11.5-14.5) % Plt Count 285 (140-400) K/mcL MPV 10.8 (9.4-12.4) fL Immature Gran % 0.2 (0-4) % Seg Neutrophils % 71.5 % Lymphocytes % 15.5 % Monocytes % 10.6 % Eosinophils % 1.5 % Basophils % 0.7 % Neutrophils # 4.4 (1.6-8.9) K/mcL Lymphocytes # 1.0 (0.6-4.6) K/mcL Monocytes # 0.7 (0.0-1.3) K/mcL Eosinophils # 0.1 (0.0-0.6) K/mcL Basophils # 0.0 (0.0-0.2) K/mcL Sodium 141 (136-145) mEq/L Potassium 4.0 (3.5-5.1) mEq/L Chloride 105 (98-107) mEq/L Carbon Dioxide 27 (23-29) mEq/L BUN 37 H (6-20) mg/dL Creatinine 1.36 H (0.70-1.30) mg/dL Est GFR ( Amer) > 60 (> 60) Est GFR (Non-Af Amer) 55 L (> 60) BUN/Creatinine Ratio 27 H (6-26) Glucose 105 (70-105) mg/dL Calculated Osmolality 301 H (280-300) Calcium 9.9 (8.6-10.3) mg/dL Troponin I < 0.03 < 0.03 (< 0.04) ng/mL Attestation Statement - Attestation Attestation: I examined this patient and my medical decision-making was reviewed with the Resident Physician. I agree with the documented findings, disposition and treatment plan as described except to the extent set forth below. Patient presents to the ED with a chief complaint of facial swelling. Patient states he had some mild swelling to the left side of his face and he woke up this morning. It is increased significantly. Patient recently started on lisinopril while admitted to the hospital with stroke symptoms. On examination the patient is a marvelously the left side of the face left upper and lower lips. No uvular deviation or swelling. No tongue swelling. No stridor. Plan. Patient is a change in his voice. Difficulty swallowing or breathing. Swelling is anterior to the teeth. He was given Solu-Medrol, Pepcid, and Benadryl. We will monitor. Possible observation. Patient is admitted. Called to the room because of the patient feels the swelling is getting worse. The swelling is progressed possibly midline and to the right side of his lips. He still has no change in his voice. No difficulty breathing or swallowing. No tongue swelling. No uvular swelling. Swelling is still all anterior to the teeth. I do not believe he needs any acute intervention intubation at this time. Patient reevaluated again at 1300 prior to being transferred to the floor. Stable from last examination. Still no difficulty swallowing or breathing. Still no tongue or uvular swelling.
[2017-10-02 07:57] LABS: BUN/Creatinine Ratio 27 (6-26); Blood Urea Nitrogen 37 mg/dL (6-20); Calcium 9.9 mg/dL (8.6-10.3); Carbon Dioxide 27 mEq/L (23-29); Chloride 105 mEq/L (98-107); Glucose 105 mg/dL (70-105); Osmolality,Calculated 301 (280-300); Sodium 141 mEq/L (136-145); eGFR For African Americans > 60 (> 60); eGFR For Non-African Americans 55 (> 60)
[2017-10-02 08:02] LABS: Basophils % 0.7 %; Eosinophils # 0.1 K/mcL (0.0-0.6); Eosinophils % 1.5 %; Hematocrit 45.2 % (37.5-50.1); Hemoglobin 15.5 g/dL (12.9-16.9); Immature Granulocytes % 0.2 % (0-4); Lymphocytes % 15.5 %; Mean Corpuscular HGB Conc 34.3 g/dL (31.6-35.5); Mean Corpuscular Volume 93.2 fL (83.0-100.0); Mean Platelet Volume 10.8 fL (9.4-12.4); Monocytes # 0.7 K/mcL (0.0-1.3); Monocytes % 10.6 %; Neutrophils # 4.4 K/mcL (1.6-8.9); Platelet Count 285 K/mcL (140-400); Red Blood Count 4.85 M/mcL (4.19-5.50); Red Cell Distribution Width 12.8 % (11.5-14.5); Segmented Neutrophils % 71.5 %
[2017-10-02 08:04] LABS: Troponin I < 0.03 ng/mL (< 0.04)
[2017-10-02] MEDS ORDERED: Naloxone 0.4 MG/ML INJ IVP PRN (09:10)
--- NOTE | 2017-10-02 09:25 | Internal Med History&Physical ---
Date of Encounter: 10/02/17 Time of Encounter: 09:18 Internal Medicine - H&P: HPI Chief complaint: Lip swelling Admitted From: Home Plans for Post Hospital Care: Home History of present illness: Mr. Simons is a 52 year old male with history of hypertension, recent a stroke with no residual symptom, hyperlipidemia, remote a smoker one and half pack per day for 19 years but quit 13 years ago presented to ER with a chief complaint of facial swelling. Patient states he had some mild swelling to the left side of his lip when he woke up this morning that is started to get worse therefore he decided to come to ER. Patient recently started on lisinopril on discharge after recent admission for the stroke . In ER Solu-Medrol loading dose, Benadryl and Pepcid was restarted. Initial lab with slight raised creatinine level. Also incidental T-wave inversion in inferior lateral lead but patient denies any chest pain shortness of breath lightheadedness dizziness diaphoresis nausea vomiting fever chills headache abdominal pain or urinary or bowel complaint. Patient never had a stress test done in the past. Your physician called on-call hospitalists for the admission keeping under observation for angioedema management. Past Med Surg Social Fam HX - Past Medical History Medical history: hyperlipidemia, hypertension, TIA Psychiatric history: no psych history - Social History Smoking Status: Never smoker Smokeless Tobacco Status: No Alcohol use: heavy Drug use: marijuana - Family History Mother Hx Family Cardiac Disorders: Yes (HTN) Father Hx Family Cardiac Disorders: Yes (HTN) Hx Family Cancer: Yes (kidney cancer) Internal Medicine - H&P: Meds Aspirin 81 mg PO DAILY #30 tab.chew 09/30/17 [Rx] Atorvastatin [Lipitor] 40 mg PO HS #30 tablet 09/30/17 [Rx] Metoprolol [Lopressor] 12.5 mg PO BID #30 tablet 09/30/17 [Rx] Lisinopril-HCTZ 20-12.5 [Prinzide 20-12.5] 1 tab PO DAILY 10/02/17 [History] 3 Allergy/AdvReac Type Severity Reaction Status Date / Time No Known Allergies Allergy Verified 10/02/17 09:05 All Systems PM: as documented above in the HPI. - Constitutional Vitals: Temp Pulse Resp BP Pulse Ox 98.3 F 54 18 147/97 97 10/02/17 07:23 10/02/17 08:26 10/02/17 08:26 10/02/17 08:26 10/02/17 08:26 Exam: General appearance: No acute distress, A&O X 3 Head exam: Atraumatic Eye exam: EOMI, PERRLA ENT exam: Moist oral mucosa. Significant swelling left side of lip extending to the right as well. No airway obstruction, normal size tongue, normal uvula. Neck- nontender, supple Respiratory exam: Clear to auscultation bilaterally Cardiovascular exam: Regular rate and rhythm, no systolic murmur Abdominal exam: Soft, nontender, nondistended, positive bowel sounds Extremities exam: No calf tenderness, no pedal edema Present: Skin-no rash, warm, dry, intact Neurological exam: Alert, awake, oriented 3, CN II-XII intact, no focal deficits. No facial droop. Normal speech. Normal gait. Internal Med - H&P Results - Labs CBC & Chem 7: 10/02/17 07:25 10/02/17 07:25 Labs: Short CBC 10/02/17 Range/Units 07:25 WBC 6.1 (4.3-11.1) K/mcL Hgb 15.5 (12.9-16.9) g/dL Hct 45.2 (37.5-50.1) % Plt Count 285 (140-400) K/mcL Neutrophils # 4.4 (1.6-8.9) K/mcL BMP 10/02/17 07:25 Sodium 141 Potassium 4.0 Chloride 105 Carbon Dioxide 27 BUN 37 H Creatinine 1.36 H Glucose 105 Calcium 9.9 Cardiac Enzymes 10/02/17 Range/Units 07:25 Troponin I < 0.03 (< 0.04) ng/mL - Impressions ITS Impressions Chest X-Ray 10/02/17 07:46 IMPRESSION: No acute process. D/ / Nigel Lawrence MD / Nigel Lawrence MD Interpreting Provider: Nigel Lawrence MD - Assessment and plan (1) Angioedema due to angiotensin converting enzyme inhibitor (CALLY-I) Current Visit: Yes Status: Acute Assessment and plan: Recently started on CALLY inhibitor last week due to newly diagnosed hypertension. No respiratory compromise at this time no airway obstruction but needs to be under very close monitoring due to rapidly progressing lip swelling. Continue Solu-Medrol, H1 and H2 valentina. Will keep patient in step down ICU for close observation. Will also label CALLY inhibitor as allergy. (2) Abnormal EKG Current Visit: Yes Status: Acute Assessment and plan: Compared to previous EKG inferior O T-wave inversion but no ST elevation. Patient denies any active chest pain or angina equivalent symptom. Echo was done during last admission with no significant finding and EF 60-65%. Will keep patient in telemetry, serial troponin. He may need stress test but will plan once current allergic symptom get better. Continue home medicine such as aspirin, beta valentina and statin. (3) Hypertension Current Visit: Yes Status: Chronic Assessment and plan: Stop CALLY inhibitor. Will start amlodipine titrate up. Hydralazine when necessary Qualifiers: Hypertension type: essential hypertension Qualified Code(s): I10 - Essential (primary) hypertension (4) CVA (cerebral vascular accident) Current Visit: Yes Status: Chronic Assessment and plan: Recently diagnosed. Stable. Continue home medicine. Patient has right carotid stenosis and will follow vascular surgeon on OPD basis Qualifiers: CVA mechanism: unspecified Qualified Code(s): I63.9 - Cerebral infarction, unspecified (5) DVT prophylaxis Current Visit: Yes Status: Acute Assessment and plan: SCDs - Time Spent With Patient Total time spent is greater than 50% in coordination of care (as documented) at patient's floor/unit and/or counseling patient: 25 - 35 minutes
[2017-10-02] MEDS: 0.9 % Sodium Chloride 1,000 ML IVC SCH ×2 (10:44→22:56)
[2017-10-02] MEDS: MethylPREDNISolone 40 MG/ML VIAL IVP SCH ×3 (14:06→23:00)
[2017-10-02] MEDS: Famotidine 20 MG/2 ML VIAL IVP SCH (17:21)
[2017-10-03 04:16] LABS: Hematocrit 37.6 % (37.5-50.1); Hemoglobin 13.3 g/dL (12.9-16.9); Immature Granulocytes % 0.6 % (0-4); Lymphocytes # 0.4 K/mcL (0.6-4.6); Lymphocytes % 5.6 %; Mean Corpuscular HGB Conc 35.4 g/dL (31.6-35.5); Mean Corpuscular Hemoglobin 32.8 pg (28.0-33.3); Mean Corpuscular Volume 92.6 fL (83.0-100.0); Mean Platelet Volume 11.2 fL (9.4-12.4); Monocytes # 0.3 K/mcL (0.0-1.3); Monocytes % 4.2 %; Neutrophils # 7.1 K/mcL (1.6-8.9); Platelet Count 260 K/mcL (140-400); Red Blood Count 4.06 M/mcL (4.19-5.50); Red Cell Distribution Width 12.4 % (11.5-14.5); Segmented Neutrophils % 89.6 %
[2017-10-03 04:33] LABS: BUN/Creatinine Ratio 22 (6-26); Blood Urea Nitrogen 28 mg/dL (6-20); Calcium 8.9 mg/dL (8.6-10.3); Carbon Dioxide 24 mEq/L (23-29); Chloride 109 mEq/L (98-107); Cholesterol 172 mg/dL (< 200); Glucose 154 mg/dL (70-105); HDL Cholesterol 43 mg/dL (40-59); LDL Cholesterol,Calculated 114 mg/dL (0-99); Osmolality,Calculated 299 (280-300); Potassium 4.1 mEq/L (3.5-5.1); Sodium 140 mEq/L (136-145); Triglycerides 73 mg/dL (< 150); eGFR For African Americans > 60 (> 60); eGFR For Non-African Americans > 60 (> 60)
[2017-10-03] MEDS: Famotidine 20 MG/2 ML VIAL IVP SCH (05:17)
[2017-10-03] MEDS: MethylPREDNISolone 40 MG/ML VIAL IVP SCH ×2 (05:17→11:34)
[2017-10-03] MEDS ORDERED: Aspirin 81 MG TAB.CHEW PO SCH (09:00)
[2017-10-03] MEDS ORDERED: amLODIPine 5 MG TABLET PO SCH (09:00)
[2017-10-03 11:07] VITALS: BP 134/74
[2017-10-03] MEDS: 0.9 % Sodium Chloride 1,000 ML IVC SCH (11:33)
--- NOTE | 2017-10-03 12:20 | Discharge Summary ---
- NOTES TO OUTPATIENT PROVIDER Notes to Outpatient Provider: Angioedema likely due to ACEI, improving; taken off Lisinopril, started Norvasc; Date of Encounter: 10/03/17 Time of Encounter: 09:00 - Discharge Diagnosis (1) Angioedema due to angiotensin converting enzyme inhibitor (CALLY-I) Priority: Primary Status: Acute (2) Hypertension Priority: Secondary Status: Chronic Qualifiers: Hypertension type: essential hypertension Qualified Code(s): I10 - Essential (primary) hypertension (3) CVA (cerebral vascular accident) Priority: Secondary Status: Chronic Qualifiers: CVA mechanism: unspecified Qualified Code(s): I63.9 - Cerebral infarction, unspecified Hospital course: Mr. Simons is a 52 year old male with recently diagnosed uncontrolled hypertension and acute ischemic stroke, who was just discharged 2 days ago on lisinopril, was admitted with facial and lip swelling. He likely has angioedema secondary to CALLY inhibitor. ACEI has been listed as an allergy. He was also noted to have mild increase in serum creatinine. CALLY inhibitor/ hydrochlorothiazide was stopped at admission and was instructed started on Norvasc. He received IV steroids, H2 receptor blockers and Benadryl with significant improvement in his facial and lip swelling. He had no respiratory failure or dysphagia. His blood pressure remains well controlled and he is very anxious to be discharged today. He is encouraged to follow up with his PCP as an outpatient. Discharge discussed with: patient, nurse - Time Spent with Patient Total time spent providing and/or coordinating discharge services: Greater than 30 minutes (40 min) - Discharge Medications Prescriptions: DiphenhydraMINE [Benadryl] 25 mg PO Q8HR PRN #20 capsule PRN Reason: Allergic Reaction amLODIPine [Norvasc] 5 mg PO DAILY #30 tablet predniSONE [PredniSONE] 40 mg PO DAILY #10 tablet Home Medications: Aspirin 81 mg PO DAILY #30 tab.chew 09/30/17 [Rx] Atorvastatin [Lipitor] 40 mg PO HS #30 tablet 09/30/17 [Rx] Metoprolol [Lopressor] 12.5 mg PO BID #30 tablet 09/30/17 [Rx] DiphenhydraMINE [Benadryl] 25 mg PO Q8HR PRN #20 capsule 10/03/17 [Rx] amLODIPine [Norvasc] 5 mg PO DAILY #30 tablet 10/03/17 [Rx] predniSONE [PredniSONE] 40 mg PO DAILY #10 tablet 10/03/17 [Rx] Allergies/Adverse Reactions: 3 Allergy/AdvReac Type Severity Reaction Status Date / Time CALLY Inhibitors Allergy angioedema Verified 10/02/17 20:55 Date of admission: 10/02/17 12:21 Primary care physician: PCP NONE Discharging clinician: Nicole Shell Anticipated date of discharge: 10/03/17 - Constitutional Vitals: Temp Pulse Resp BP Pulse Ox 98.8 F 86 16 134/74 96 10/03/17 11:05 10/03/17 06:51 10/03/17 11:05 10/03/17 11:05 10/03/17 11:05 General appearance: Present: A&O X 3, answers questions appropriately Exam: improving facial and lip angioedema - Cardiovascular Cardiovascular exam: Present: RRR, +S1, +S2. Absent: diastolic murmur, gallop, rubs, systolic murmur - Patient Status Disposition: Home, Self-Care Condition: Good Functional capacity at discharge: independent ambulation Overall status at discharge: patient is progressing back to baseline - Discharge Instructions Follow Up With: NONE,PCP [Primary Care Provider] - Additional Instructions: F/up with PCP as scheduled - Diet and Activity Activity: resume usual activities as tolerated Diet: low fat, low cholesterol, low salt diet
--- NOTE | 2017-10-04 14:21 | Electrocardiograph Report ---
[place] [id number] Test Date: 2017-10-02 Pat Name: Luis Simons Department: 103 Room: 2N07 Gender: M Installations Inspector: MOUNA : 1965 Requested By: Inocencia Falk Order Number: [id number] Reading MD: Carla Barraza Measurements Intervals [place] Rate: 55 P: -7 TX: 142 QRS: -14 QRSD: 94 T: 260 QT: 407 QTc: 397 Interpretive Statements SINUS BRADYCARDIA ST DEVIATION AND MODERATE T-WAVE ABNORMALITY, CONSIDER LATERAL ISCHEMIA [-0.1+ mV T WAVE IN I/aVL/V5/V6] ST DEVIATION AND MODERATE T-WAVE ABNORMALITY, CONSIDER INFERIOR ISCHEMIA [-0.1+ mV T WAVE IN II/aVF] Electronically Signed On 10-04-2017 14:20:19 EDT by Carla Barraza
== END 2017-10-03 12:50 | disposition home or self-care (01) ==
LOC: EMEROO 07:10 → 2NNU 12:21 → INTOOBSV 12:21 → SUATTDRO 12:21 → 2NNU 13:06
PROVIDERS: ADMIT General Practice; ATTEND Internal Medicine